=== PATIENT | male | born 1995 | race Caucasian/White ===

== ENCOUNTER 2017-06-23 02:56 | Emergency (ER) | payer MEDICAID ==
[~2017-06-23] VITALS: Ht 170.2 cm; Wt 68.0 kg
[2017-06-23] MEDS ORDERED: ACETAMINOPHEN 325MG TABLET PO ONE (06:30)
[2017-06-23 07:48] VITALS: BP 129/80
== END 2017-06-23 07:49 | disposition home or self-care (01) ==
LOC: ER 02:56
DX: S00.83XA Contusion of other part of head, initial encounter (principal); Y04.0XXA Assault by unarmed brawl or fight, initial encounter; Y93.89 Activity, other specified; Y92.89 Other specified places as the place of occurrence of the external cause; Y99.8 Other external cause status
CPT/HCPCS: 70450; 70486; 99284

== ENCOUNTER 2018-12-10 08:18 | Emergency (ER) | payer SELFPAY ==
[~2018-12-10] VITALS: Ht 170.2 cm; Wt 70.0 kg
[2018-12-10] MEDS ORDERED: IBUPROFEN 600MG TABLET PO STA (08:42)
[2018-12-10 09:01] VITALS: BP 120/80
== END 2018-12-10 09:02 | disposition home or self-care (01) ==
LOC: ER 08:18
DX: S70.11XA Contusion of right thigh, initial encounter (principal); S70.312A Abrasion, left thigh, initial encounter; V19.88XA Pedal cyclist (driver) (passenger) injured in other specified transport accidents, initial encounter; Y93.I9 Activity, other involving external motion; Y92.89 Other specified places as the place of occurrence of the external cause; Y99.8 Other external cause status
CPT/HCPCS: 99282